=== PATIENT | female | born 1980 | race Asian ===

== ENCOUNTER 2018-03-02 10:15 | Inpatient (IN) | payer SELFPAY ==
[~2018-03-02] VITALS: Ht 158 cm; Wt 76.0 kg
[2018-03-02 11:57] LABS: BASOPHILS # (AUTO) 0.1 K/uL (0.00-0.22); BASOPHILS % (AUTO) 0.8 % (0.0-2.0); EOSINOPHILS # (AUTO) 0.2 K/uL (0-0.4); EOSINOPHILS % (AUTO) 2.6 % (0.0-4.0); HEMOGLOBIN 11.8 g/dL (12.0-16.0); LYMPHOCYTES # (AUTO) 1.2 K/uL (2.5-16.5); LYMPHOCYTES % (AUTO) 12.9 % (20.5-51.1); MEAN CORPUSCULAR HEMOGLOBIN 30 pg (27-31); MEAN CORPUSCULAR HGB CONC 34 g/dL (33-37); MEAN CORPUSCULAR VOLUME 88.8 fL (80-94); MONOCYTES # (AUTO) 0.7 K/uL (0.8-1.0); MONOCYTES % (AUTO) 7.1 % (1.7-9.3); NEUTROPHILS # (AUTO) 7.3 K/uL (1.8-7.7); NEUTROPHILS % (AUTO) 76.6 % (42.2-75.2); PLATELET COUNT (AUTO) 249 K/uL (140-450); RED BLOOD CELL COUNT(AUTO) 3.94 MIL/uL (4.20-5.40); RED CELL DISTRIBUTION WIDTH 14.3 % (11.6-13.7); WHITE BLOOD COUNT (AUTO) 9.5 K/uL (4.8-10.8)
[2018-03-02] MEDS: LACTATED RINGERS 1,000 ML IV SCH ×2 (12:04→14:10)
[2018-03-02 12:07] LABS: BILIRUBIN,URINE NEGATIVE (NEGATIVE); BLOOD, URINE NEGATIVE (NEGATIVE); COLOR,URINE YELLOW (YELLOW); LEUKOCYTE ESTERASE ,URINE NEGATIVE (NEGATIVE); NITRITE, URINE NEGATIVE (NEGATIVE); PH,URINE 6.5 (5.0-9.0); UGLUCOSE NEGATIVE (NEGATIVE)
[2018-03-02 12:10] LABS: ANION GAP 8.8 (8-16); CARBON DIOXIDE 22.8 mmol/L (21-32); CREATININE 0.4 mg/dL (0.6-1.3); POTASSIUM 3.6 mmol/L (3.5-5.1)
[2018-03-02 12:16] LABS: TOTAL BILIRUBIN 0.5 mg/dL (0.0-1.0)
[2018-03-02 12:21] LABS: APPEARANCE,URINE CLEAR (CLEAR); RBC,URINE 0-5 (RARE) /HPF (0-5); WBC,URINE 0-5 (RARE) /HPF (0-5)
[2018-03-02] MEDS ORDERED: MORPHINE PRES FREE 2 MG/2 ML 2 mL UD SYRINGE ONE (14:27)
[2018-03-02] MEDS ORDERED: MIDAZOLAM 2 MG/2 ML VIAL ONE (14:27)
[2018-03-02] MEDS ORDERED: TRIAMCINOLONE 40 MG/ML 5ML VIAL ONE (14:28)
[2018-03-02] MEDS ORDERED: OXYTOCIN 10 UNITS/ML VIAL ONE (14:28)
[2018-03-02] MEDS ORDERED: BUPIVACAINE/DEXT 0.75% SPINAL 2 ML AMP INJ ONE (14:33)
[2018-03-02] MEDS ORDERED: ceFAZolin 1,000 MG VIAL IVP ONE (15:00)
[2018-03-02] MEDS ORDERED: OXYTOCIN 20 UNITS in LACTATED RINGERS 1,000 ML IV SCH (15:11)
[2018-03-02] MEDS ORDERED: NALBUPHINE 10 MG/ML AMP IVP PRN (15:15)
[2018-03-02] MEDS ORDERED: ONDANSETRON 4 MG/2 ML VIAL IVP PRN ×2 (15:15)
[2018-03-02] MEDS ORDERED: diphenhydrAMINE 50 MG/ML VIAL IVP PRN ×2 (15:15)
[2018-03-02] MEDS ORDERED: HYDROmorphone 1 MG/ML AMP IVP PRN (15:15)
[2018-03-02] MEDS ORDERED: MEPERIDINE 25 MG/ML SYR IVP PRN (15:15)
[2018-03-02] MEDS ORDERED: NALOXONE 0.4 MG/ML VIAL IVP PRN ×3 (15:15)
[2018-03-02] MEDS ORDERED: FERR-252 PO (15:36)
[2018-03-02] MEDS ORDERED: HYDROcodone/APAP 5/325 MG 1 TAB TAB PO PRN (15:45)
[2018-03-02] MEDS ORDERED: MEASLES, MUMPS, AND RUBELLA 1 VIAL SQVAC PRN (15:45)
[2018-03-02] MEDS ORDERED: oxyCODONE/APAP 5/325 MG 1 TAB TAB PO PRN (15:45)
[2018-03-02] MEDS ORDERED: SIMETHICONE 80 MG TAB.CHEW PO PRN (15:45)
[2018-03-02] MEDS ORDERED: METHYLERGONOVINE 0.2 MG/ML AMP IM PRN (15:45)
[2018-03-02] MEDS ORDERED: TRIMETHOBENZAMIDE 200 MG/2 ML SYR IM PRN (15:45)
[2018-03-02] MEDS ORDERED: IBUPROFEN 800 MG TAB PO PRN (15:45)
[2018-03-02] MEDS ORDERED: TEMAZEPAM 15 MG CAP PO PRN (15:45)
[2018-03-02] MEDS ORDERED: ONDANSETRON 4 MG/2 ML VIAL ONE (15:57)
[2018-03-02] MEDS ORDERED: OXYTOCIN 20 UNITS/LR PREMIX 1,000 ML IV ONE (15:57)
[2018-03-02] MEDS ORDERED: KETOROLAC 30 MG/ML VIAL IM/IVP SCH (18:00)
[2018-03-02] MEDS: OXYTOCIN 20 UNITS in LACTATED RINGERS 1,000 ML IV SCH (19:39)
[2018-03-02] MEDS ORDERED: KETOROLAC 30 MG/ML VIAL IVP PRN (19:45)
[2018-03-02] MEDS: DOCUSATE SOD/SENNA 50/8.6 MG 1 TAB PO SCH (21:00)
[2018-03-03] MEDS ORDERED: OXYTOCIN 20 UNITS/LR PREMIX 1,000 ML IV ONE (03:10)
[2018-03-03] MEDS: OXYTOCIN 20 UNITS in LACTATED RINGERS 1,000 ML IV SCH ×2 (03:26→12:10)
[2018-03-03 06:41] LABS: BASOPHILS # (AUTO) 0.1 K/uL (0.00-0.22); BASOPHILS % (AUTO) 0.4 % (0.0-2.0); EOSINOPHILS # (AUTO) 0.1 K/uL (0-0.4); EOSINOPHILS % (AUTO) 0.4 % (0.0-4.0); HEMATOCRIT 29.4 % (36-48); HEMOGLOBIN 10.1 g/dL (12.0-16.0); LYMPHOCYTES # (AUTO) 1.1 K/uL (2.5-16.5); LYMPHOCYTES % (AUTO) 7.3 % (20.5-51.1); MEAN CORPUSCULAR HEMOGLOBIN 31 pg (27-31); MEAN CORPUSCULAR HGB CONC 34 g/dL (33-37); MEAN CORPUSCULAR VOLUME 89.4 fL (80-94); MONOCYTES # (AUTO) 1.1 K/uL (0.8-1.0); MONOCYTES % (AUTO) 7.2 % (1.7-9.3); NEUTROPHILS # (AUTO) 12.6 K/uL (1.8-7.7); NEUTROPHILS % (AUTO) 84.7 % (42.2-75.2); PLATELET COUNT (AUTO) 201 K/uL (140-450); RED BLOOD CELL COUNT(AUTO) 3.29 MIL/uL (4.20-5.40); RED CELL DISTRIBUTION WIDTH 14.2 % (11.6-13.7); WHITE BLOOD COUNT (AUTO) 14.9 K/uL (4.8-10.8)
--- NOTE | 2018-03-03 07:31 | NUR ---
PATIENT HAS BEEN SCREENED AND CATEGORIZED LOW NUTRITION RISK. PATIENT WILL BE SEEN WITHIN 7 DAYS OF ADMISSION. 03/09/[address]
[2018-03-03] MEDS: DOCUSATE SOD/SENNA 50/8.6 MG 1 TAB PO SCH (21:32)
[2018-03-04 08:09] LABS: RAPID PLASMA REAGIN NON-REACTIVE (Non Reactiv)
[2018-03-04] MEDS ORDERED: SODIUM PHOSPHATE 118 ML ENEM RC SCH (13:25)
[2018-03-04] MEDS: DOCUSATE SOD/SENNA 50/8.6 MG 1 TAB PO SCH (21:22)
== END 2018-03-05 14:20 | disposition home or self-care (01) | DRG 766 ==
LOC: MLD 10:15 → MFCC 15:00
PROVIDERS: ADMIT Obstetrics & Gynecology; ATTEND Obstetrics & Gynecology
PROC: 10D00Z1 Extraction of Products of Conception, Low, Open Approach (ICD-10-PCS; principal; 2018-03-02 14:30)
DX: O34.211 Maternal care for low transverse scar from previous cesarean delivery (principal); Z3A.39 39 weeks gestation of pregnancy; Z37.0 Single live birth
CPT/HCPCS: 36415; 51702; 80053; 81001; 85025; 86592; 86706; 86762; 86886; 86900; 86901; 87653-90; J0690; J2250; J2270; J2405; J2590; J3301; J3490; J7060; J7120